=== PATIENT | male | born 1965 | race Caucasian/White ===

== ENCOUNTER → 2023-01-27 | Outpatient (CLI) | payer BC ==
--- NOTE | 2023-01-27 13:41 | XR ---
EXAMINATION TYPE: XR shoulder complete LT DATE OF EXAM: 01/27/2023 CLINICAL HISTORY: Pain and numbness into left arm TECHNIQUE: Three views of the left shoulder are obtained. COMPARISON: None. FINDINGS: There is poor external rotation and positioning on radiographs making evaluation suboptimal . There is no acute fracture/dislocation evident in the left shoulder. The acromioclavicular and gle nohumeral joint spaces appear within normal limits. Distal acromion morphology unremarkable. The vis ualized ribs are intact . IMPRESSION: As above.
--- NOTE | 2023-01-27 13:43 | XR ---
EXAMINATION TYPE: XR cervical spine comp DATE OF EXAM: 01/27/2023 TECHNIQUE: Frontal, lateral, oblique, swimmers, and open mouth view of the cervical spine are obtaine d. HISTORY: [id number] COMPARISON: None FINDINGS: The cervical spine is visualized in its entirety from C1 thru the top of T1 level, it is s traightened in alignment without evidence of acute fracture or dislocation. The pre-vertebral soft t issue appears within normal limits. The C1-C2 articulation is within normal limits on the open mouth view. Vertebral body heights are maintained. Mild disc space narrowing C4-C5 through the C6-C7 level s with mild anterior spurring. The oblique images are within normal limits. Overlying soft tissue is unremarkable. IMPRESSION: As above.
== END | disposition home or self-care (01) ==
LOC: RADXRYALE 13:10
PROVIDERS: ATTEND Family Medicine
DX: M50.321 Other cervical disc degeneration at C4-C5 level (principal); M50.322 Other cervical disc degeneration at C5-C6 level; R20.2 Paresthesia of skin; M25.512 Pain in left shoulder
CPT/HCPCS: 72050

== ENCOUNTER → 2023-08-25 | Outpatient (CLI) | payer BC ==
--- NOTE | 2023-08-25 09:37 | XR ---
EXAMINATION TYPE: XR ankle complete RT DATE OF EXAM: 08/25/2023 9:17 AM CLINICAL INDICATION:Male, 57 years old with history of [id number] RT ANKLE PAIN; [facility] COMPARISON: None TECHNIQUE: XR ankle complete RT; ankle is imaged in frontal, lateral and oblique projections. FINDINGS: There is no evidence of acute osseous pathology. The joint spaces are well-preserved without evidenc e of subluxation or dislocation. Kager's fat pad is intact. Mild soft tissue swelling around the ankl e. No radiopaque foreign bodies are identified. IMPRESSION: 1. No evidence of acute fracture. 2. Subcutaneous swelling around the ankle likely secondary to underlying soft tissue injury.
== END | disposition home or self-care (01) ==
LOC: RADXRYALE 08:59
PROVIDERS: ATTEND Family Medicine
DX: M25.571 Pain in right ankle and joints of right foot (principal); M79.89 Other specified soft tissue disorders

== ENCOUNTER → 2025-04-26 | Outpatient (CLI) | payer BC, OTHER ==
--- NOTE | 2025-04-26 09:43 | XR ---
EXAMINATION TYPE: XR lumbosacral spine min 4V DATE OF EXAM: 04/26/2025 9:35 AM COMPARISON: None. CLINICAL INDICATION: Male, 59 years old with history of [id number]; TECHNIQUE: XR lumbosacral spine min 4V views are submitted. FINDINGS: Alignment is anatomic. The pedicles are intact. The transverse processes are intact. Severe degener ative disc disease with facet arthropathy L4-5 and L5-S1. Additional multilevel mild degenerative dis c disease. IMPRESSION: 1. Multilevel degenerative disc disease with severe changes L4-5 and L5-S1. Facet arthropathy. Findin gs likely result in foraminal encroachment. Consider follow-up MRI. [facility], , 04/26/2025 9:40 AM
== END | disposition home or self-care (01) ==
LOC: RADXRYALE 09:17
PROVIDERS: ATTEND Family Medicine
DX: M51.362 Other intervertebral disc degeneration, lumbar region with discogenic back pain and lower extremity pain (principal); M51.379 Other intervertebral disc degeneration, lumbosacral region without mention of lumbar back pain or lower extremity pain; R20.2 Paresthesia of skin; M51.360 Other intervertebral disc degeneration, lumbar region with discogenic back pain only; M47.817 Spondylosis without myelopathy or radiculopathy, lumbosacral region
CPT/HCPCS: 72110